=== PATIENT | male | born 1995 | race Caucasian/White ===

== ENCOUNTER 2018-11-24 17:18 | Emergency (ER) | payer BC ==
[~2018-11-24] VITALS: Ht 172.7 cm; Wt 68.0 kg
[2018-11-24 17:18] VITALS: BP 141/83
[2018-11-24] MEDS ORDERED: TDAP [DIPH/PERTUSSIS/TET] 0.5 ML VIAL IM ONE ×2 (18:00→18:11)
== END 2018-11-24 18:25 | disposition home or self-care (01) ==
LOC: ER 17:23
DX: S61.210A Laceration without foreign body of right index finger without damage to nail, initial encounter (principal); Z23 Encounter for immunization; W26.0XXA Contact with knife, initial encounter; Y93.89 Activity, other specified; Y92.89 Other specified places as the place of occurrence of the external cause; Y99.8 Other external cause status
CPT/HCPCS: 12001; 90471; 90715; 99283; A4606; Z7610